=== PATIENT | female | born 1955 | race Caucasian/White ===

== ENCOUNTER 2022-08-01 07:56 | Outpatient (CLI) | payer MEDICARE, MEDICAID, SELFPAY ==
[2022-08-01 08:11] LABS: Basophils Absolute Auto 0.04 K/mm3 (0.00-0.10); Basophils Percent Auto 0.6 % (0.0-1.0); Eosinophils Absolute Auto 0.21 K/mm3 (0.02-0.50); Eosinophils Percent Auto 2.9 % (1.0-6.0); Hematocrit 43.1 % (35.0-42.0); Hemoglobin 13.9 g/dL (11.7-13.8); Immature Granulocyte Absolute 0.03 K/mm3 (0.00-0.00); Immature Granulocyte Percent A 0.4 % (0.0-0.0); Lymphocytes Absolute Auto 1.88 K/mm3 (1.10-4.50); Lymphocytes Percent Auto 26.4 % (18.0-42.0); Mean Corpuscular HGB Conc 32.3 g/dL (32.0-36.0); Mean Corpuscular Hemoglobin 30.1 pg (27.0-31.0); Mean Corpuscular Volume 93.3 fL (78.0-102.0); Mean Platelet Volume 10.3 fl (9.2-11.8); Neutrophils Absolute Auto 4.5 K/mm3 (1.7-7.2); Neutrophils Percent Auto 62.7 % (50.0-70.0); Platelet Count Result 154 K/mm3 (150-420); Red Blood Count 4.62 M/mm3 (4.20-5.40); Red Cell Distribution Width 14.6 % (11.6-14.4); White Blood Count 7.1 K/mm3 (4.8-10.8)
[2022-08-01 09:05] LABS: Alanine Aminotransferase 25 U/L (14-59); Albumin Level 3.7 g/dL (3.4-5.0); Alkaline Phosphatase 82 U/L (46-116); Anion Gap 12 mmol/L (8-16); Aspartate Amino Transferase 21 U/L (15-37); Bilirubin,Total 0.2 mg/dL (0.00-1.00); Blood Urea Nitrogen 14 mg/dL (7-18); Carbon Dioxide 26 mmol/L (21-32); Chloride 106 mmol/L (98-108); Cholesterol 175 mg/dL (0-200); Estimated Glomerular Filt Rate > 60; Glucose 92 mg/dL (70-99); HDL Direct 45 mg/dL (40-60); LDL Cholesterol Calculated 113 mg/dL (<130); Osmolality Calculated 298 mOsm/kg (285-295); Potassium 4.5 mmol/L (3.5-5.1); Sodium 144 mmol/L (136-145); Total Protein 7.3 g/dL (6.4-8.2); Triglycerides 83 mg/dL (0-150)
--- NOTE | 2022-08-01 15:22 | ECG_ITS ---
Measurements Intervals [place] Rate: 75 P: 72 WI: 191 QRS: 56 QRSD: 82 T: 73 QT: 371 QTc: 416 Interpretive Statements SINUS RHYTHM RSR' V1/V2 BORDERLINE ECG BASELINE ARTIFACT NO PREVIOUS ECG AVAILABLE FOR COMPARISON Electronically Signed On 08-01-2022 16:27:45 NURSING TECH by Leonel Nuñez M.D.
== END 2022-08-01 07:57 | disposition home or self-care (01) ==
LOC: CHSLAB 08:02 → CHSCARD 15:11
PROVIDERS: PCP Family Medicine; Visit Provider Internal Medicine Cardiovascular Disease
DX: R06.09 Other forms of dyspnea (principal); E78.00 Pure hypercholesterolemia, unspecified; I10 Essential (primary) hypertension
CPT/HCPCS: 36415; 80053; 80061; 85025; 93005